=== PATIENT | female | born 1965 | race Caucasian/White ===

== ENCOUNTER → 2016-06-26 | Outpatient (CLI) | payer BC | LOC: MC.RAD 07:20 | DX: Z12.31 Encounter for screening mammogram for malignant neoplasm of breast (principal) ==

== ENCOUNTER → 2017-08-16 | Outpatient (CLI) | payer BC | LOC: MC.RAD 07-16 14:00 | DX: Z12.31 Encounter for screening mammogram for malignant neoplasm of breast (principal) ==

== ENCOUNTER → 2018-09-29 | Outpatient (CLI) | payer BC, OTHER | LOC: MC.RAD 07:45 | DX: Z12.31 Encounter for screening mammogram for malignant neoplasm of breast (principal) ==

== ENCOUNTER 2019-09-12 14:00 | Outpatient (RCR) | payer BC, OTHER ==
[2019-08-22 17:25] VITALS: BP 114/59; PULSE 56; TEMP 97.8
[2019-08-29 14:26] VITALS: BP 127/86; PULSE 73; TEMP 98.4
[2019-09-05 10:06] VITALS: BP 128/83; PULSE 76; TEMP 96
[~2019-09-12] VITALS: Ht 165.1 cm; Wt 82.0 kg
[~2019-09-12 14:00] MED LIST: CYMBALTA 30MG30 MG PO; PRILOSEC 20MG20 MG PO; SYNTHROID0.112 MG/T PO; ZESTRIL 10MG10 MG PO
[2019-09-12 14:39] VITALS: BP 151/90; PULSE 88; TEMP 98.5
== END 2019-09-12 16:18 | disposition still patient (30) ==
LOC: EUO 14:00
DX: Z79.899 Other long term (current) drug therapy (principal)
CPT/HCPCS: J2916

== ENCOUNTER → 2019-10-05 | Outpatient (CLI) | payer BC | LOC: MC.RAD 07:27 | DX: Z12.31 Encounter for screening mammogram for malignant neoplasm of breast (principal) ==

== ENCOUNTER 2019-12-21 13:01 | Outpatient (CLI) | payer BC ==
[~2019-12-21] VITALS: Ht 165.1 cm; Wt 84.9 kg
[2019-12-21 13:22] VITALS: BP 113/67; PULSE 77; TEMP 98.4
== END 2019-12-21 15:00 | disposition home or self-care (01) ==
LOC: EUO 13:01
DX: Z01.89 Encounter for other specified special examinations (principal)
CPT/HCPCS: J2916

== ENCOUNTER → 2020-10-10 | Outpatient (CLI) | payer BC ==
[~2020-10-10] MED LIST changes: +CELEBREX 200MG200 MG PO
== END ==
LOC: MC.RAD 07:29
DX: Z12.31 Encounter for screening mammogram for malignant neoplasm of breast (principal)

== ENCOUNTER → 2021-10-23 | Outpatient (CLI) | payer BC | LOC: MC.RAD 07:13 | DX: Z12.31 Encounter for screening mammogram for malignant neoplasm of breast (principal) ==

== ENCOUNTER → 2023-12-16 | Outpatient (CLI) | payer BC ==
[~2023-12-16] MED LIST changes: +FISH OIL 500 M1 EAC1 PO; +GLUCOPHAGE500 MG/TAB PO; +INDERAL60 MG PO; +LIPITOR 10MG10 MG PO; +MOUNJARO2.5 MG/0.5 SQ; +SYNTHROID0.137 MG; +[UNRECOGNIZED DRUG - OTHER] TP
== END ==
LOC: MC.RAD 09:53
DX: Z12.31 Encounter for screening mammogram for malignant neoplasm of breast (principal)